=== PATIENT | female | born 1950 | race African-American/Black ===

== ENCOUNTER 2016-12-28 10:39 | Emergency (ER) | payer OTHER ==
[~2016-12-28] VITALS: Ht 162.6 cm; Wt 65.0 kg
[~2016-12-28 10:39] MED LIST: HYDR-3580 PO; LISI10TA PO; PROT40TA PO
[2016-12-28 10:41] VITALS: BP 177/76; PULSE 60; RESP 14; TEMP 98.2; O2SAT 98
[2016-12-28 10:55] VITALS: BP 182/75; PULSE 55; RESP 20; O2SAT 98
[2016-12-28] MEDS ORDERED: LISI10TA PO (11:00)
--- NOTE | 2016-12-28 11:00 | PD ---
HPI Chief Complaint: Abdominal Pain Time Seen by Provider: 11:00 Travel History International Travel<30 days: No Contact w/Intl Traveler<30days: No Traveled to known affect area: No History of Present Illness HPI 66-year-old Afro-[place] female presents the emergency department several day history of worsening epigastric tenderness radiating through to her back. Patient states it's worse every time she eats. She has been unable to eat the past 24 hours. Patient denies fever, chills, shortness of breath, or wheezing. Patient denies nausea, vomiting, or diarrhea. She denies urinary symptoms. She denies changes in her stool. She has a history of gastritis and pancreatitis in the past. 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 Patient states the pain is a 9 out of 10. Describes it as a sharp achy pain. She has no known drug allergies. PFSH Past Medical History Arthritis: Yes Asthma: No Autoimmune Disease: No Blood Disorders: No Anxiety: Yes Depression: Yes Heart Rhythm Problems: No Cancer: No Cardiac Catheterization: Yes Cardiovascular Problems: Yes High Cholesterol: Yes Chemotherapy: No Chest Pain: No Congestive Heart Failure: No COPD: No Coronary Artery Disease: Yes Diabetes: No Diminished Hearing: No Endocrine: No Gastrointestinal Disorders: Yes (PANCREATITIS, GASTRITIS) GERD: No Glaucoma: No Genitourinary: No Hepatitis: No Hiatal Hernia: No Hypertension: Yes Immune Disorder: No Musculoskeletal: Yes Neurologic: No Psychiatric: Yes Reproductive: Yes (partial hysterectomy) Respiratory: Yes Myocardial Infarction: Yes Pancreatitis: Yes (per hx ) Radiation Therapy: No Sleep Apnea: No Thyroid Disease: No Ulcer: No ?: Not Menopausal: Yes : 10 Para: 10 Tubal Ligation: Yes Past Surgical History Abdominal Surgery: No AICD: No Cardiac Surgery: No Section: Yes Coronary Stent: Yes Ear Surgery: No Endocrine Surgery: No Genitourinary Surgery: No Gynecologic Surgery: Yes Hysterectomy: Yes Oral Surgery: No Pacemaker: No Thoracic Surgery: No Other Surgery: No Social History Alcohol Use: No Tobacco Use: Yes Substance Use: No Allergies-Medications (Allergen,Severity, Reaction): Coded Allergies: No Known Allergies (Verified , NKA, 07/30/14) Reported Meds & Prescriptions Reported Meds & Active Scripts Active Omeprazole 40 Mg Cap 40 Mg PO DAILY Lortab (Hydrocodone-Acetaminophen) 5-325 Mg Tab 1-2 Tab PO Q6H PRN Reported Lisinopril-Hctz 10-12.5 Mg Tab 1 Tab PO DAILY Review of Systems Except as stated in HPI: all other systems reviewed are Neg General / Constitutional: No: Fever, Chills Eyes: No: Visual changes HENT: No: Headaches Cardiovascular: No: Chest Pain or Discomfort Respiratory: No: Shortness of Breath Gastrointestinal: Positive: Abdominal Pain, Dysphagia, Loss of Appetite, No: Nausea, Vomiting, Diarrhea, Hematemesis, Hematochezia, Constipation Genitourinary: No: Urgency, Frequency, Dysuria Musculoskeletal: No: Pain Skin: No Rash Neurologic: No: Weakness Psychiatric: No: Depression Endocrine: No: Polydipsia Hematologic/Lymphatic: No: Easy Bruising Physical Exam Narrative GENERAL: Patient appears to be uncomfortable but in no obvious severe distress. SKIN: Warm and dry. Normal color. Normal turgor. HEAD: Atraumatic. Normocephalic. EYES: Pupils equal and round. No scleral icterus. No injection or drainage. ENT: No nasal bleeding or discharge. Mucous membranes pink and moist. Pharynx is clear. Airway is patent. NECK: Trachea midline. Supple and nontender. CARDIOVASCULAR: Regular rate and rhythm. RESPIRATORY: No accessory muscle use. Clear to auscultation. Breath sounds equal bilaterally. GASTROINTESTINAL: Abdomen soft, moderate to severe epigastric tenderness, nondistended. No guarding. Bowel sounds are somewhat quiet throughout all quadrants. Hepatic and splenic margins not palpable. Mild bilateral CVA tenderness with percussion. MUSCULOSKELETAL: Extremities without clubbing, cyanosis, or edema. No obvious deformities. NEUROLOGICAL: Awake and alert. No obvious cranial nerve deficits. Motor grossly within normal limits. Five out of 5 muscle strength in the arms and legs. Normal speech. PSYCHIATRIC: Appropriate mood and affect; insight and judgment normal. Data Data Last Documented VS Vital Signs Date Time Temp Pulse Resp B/P Pulse Ox O2 Delivery O2 Flow Rate FiO2 12/28/16 10:55 55 20 182/75 98 Room Air 12/28/16 10:41 98.2 Orders Complete Blood Count With Diff (12/28/16 11:05) Comprehensive Metabolic Panel (12/28/16 11:05) Lipase (12/28/16 11:05) Lactic Acid (12/28/16 11:05) Prothrombin Time / Inr (Pt) (12/28/16 11:05) Act Partial Throm Time (Ptt) (12/28/16 11:05) Urinalysis - C+S If Indicated (12/28/16 11:05) Ct Abd/Pel W Iv Contrast(Rout) (12/28/16 11:05) Iv Access Insert/Monitor (12/28/16 11:05) Ecg Monitoring (12/28/16 11:05) Oximetry (12/28/16 11:05) NPO (12/28/16 11:05) Morphine Inj (Morphine Inj) (12/28/16 11:15) Ondansetron Inj (Zofran Inj) (12/28/16 11:15) Pantoprazole Inj (Protonix Inj) (12/28/16 11:15) Sodium Chlor 0.9% 1000 Ml Inj (Ns 1000 M (12/28/16 11:05) Sodium Chloride 0.9% Flush (Ns Flush) (12/28/16 11:15) Electrocardiogram (12/28/16 11:05) Al-Mag Hy-Si 40-40-4 Mg/Ml Liq (Mag-Al P (12/28/16 11:15) Lidocaine 2% Viscous (Xylocaine 2% Visco (12/28/16 11:15) Oral Contrast - Adult (12/28/16 11:11) Diatrizoate Liq ( Gastroview Liq) (12/28/16 11:36) Iohexol 350 Inj (Omnipaque 350 Inj) (12/28/16 13:42) Labs Laboratory Tests Test 12/28/16 11:48 White Blood Count 8.1 TH/MM3 Red Blood Count 4.64 MIL/MM3 Hemoglobin 13.5 GM/DL Hematocrit 40.6 % Mean Corpuscular Volume 87.3 FL Mean Corpuscular Hemoglobin 29.2 PG Mean Corpuscular Hemoglobin 33.4 % Concent Red Cell Distribution Width 14.4 % Platelet Count 224 TH/MM3 Mean Platelet Volume 8.3 FL Neutrophils (%) (Auto) 49.9 % Lymphocytes (%) (Auto) 37.7 % Monocytes (%) (Auto) 8.4 % Eosinophils (%) (Auto) 3.4 % Basophils (%) (Auto) 0.6 % Neutrophils # (Auto) 4.1 TH/MM3 Lymphocytes # (Auto) 3.1 TH/MM3 Monocytes # (Auto) 0.7 TH/MM3 Eosinophils # (Auto) 0.3 TH/MM3 Basophils # (Auto) 0.0 TH/MM3 CBC Comment DIFF FINAL Differential Comment Prothrombin Time 10.6 SEC Prothromb Time International 1.0 RATIO Ratio Activated Partial 29.9 SEC Thromboplast Time Urine Color YELLOW Urine Turbidity CLEAR Urine pH 6.5 Urine Specific [place] 1.014 Urine Protein TRACE mg/dL Urine Glucose (UA) NEG mg/dL Urine Ketones NEG mg/dL Urine Occult Blood NEG Urine Nitrite NEG Urine Bilirubin NEG Urine Urobilinogen LESS THAN 2.0 MG/DL Urine Leukocyte Esterase NEG Urine RBC LESS THAN 1 /hpf Urine WBC LESS THAN 1 /hpf Urine Squamous Epithelial 2 /hpf Cells Urine Bacteria RARE /hpf Microscopic Urinalysis Comment CULT NOT INDICATED Sodium Level 138 MEQ/L Potassium Level 4.1 MEQ/L Chloride Level 106 MEQ/L Carbon Dioxide Level 23.6 MEQ/L Anion Gap 8 MEQ/L Blood Urea Nitrogen 10 MG/DL Creatinine 0.68 MG/DL Estimat Glomerular Filtration 105 ML/MIN Rate Random Glucose 82 MG/DL Lactic Acid Level 0.8 mmol/L Calcium Level 8.7 MG/DL Total Bilirubin 0.6 MG/DL Aspartate Amino Transf 17 U/L (AST/SGOT) Alanine Aminotransferase 16 U/L (ALT/SGPT) Alkaline Phosphatase 66 U/L Total Protein 7.8 GM/DL Albumin 3.3 GM/DL Lipase 208 U/L [facility] Medical Decision Making Medical Screen Exam Complete: Yes Emergency Medical Condition: Yes Medical Record Reviewed: Yes Differential Diagnosis Epigastric pain. Gastritis. Pancreatitis. Diverticulitis. Gallbladder disease. Biliary colic. Narrative Course Patient is medically stable at time of exam. Patient is reviewed and examined with Dr. sampson. Labs ordered including CBC, CMP, lactic acid, lipase, urinalysis, coagulation studies. IV access is obtained patient is given 4 mg Zofran IV as well as 4 mg morphine IV. Patient is given [address] of the abdomen with IV and oral contrast is ordered. Labs are essentially all within normal limits. Patient symptomatically improved. CT shows suspected mild had pancreatitis in the proper clinical setting. #2 trace free fluid. Nothing large, organized drainable, #3 fatty liver again noted. 4 heterogeneous pelvic mass measuring 8.6 x 12.1 x 9.7 cm fairly similar to previous CT scan. This is suggestive of fibroid per radiologist. Patient discussed with Dr. sampson feels the patient is stable for discharge. Patient is discharged home with omeprazole 40 mg daily for the next month. Patient is given a prescription for Lortab 325 to be taken as needed for pain # 12. Patient is referred to her primary care physician and/or [place] [facility] for further treatment. Patient can always return to emergency Department with worsening symptoms as needed. Diagnosis Primary Impression: Gastritis Qualified Code: K29.00 - Acute gastritis without hemorrhage, unspecified gastritis type Additional Impression: Abdominal pain Qualified Code: R10.13 - Epigastric pain Referrals: [facility] Primary Care Physician Patient Instructions: General Instructions Additional Instructions: Labs are essentially all within normal limits. Patient symptomatically improved. CT shows suspected mild had pancreatitis in the proper clinical setting. #2 trace free fluid. Nothing large, organized drainable, #3 fatty liver again noted. 4 heterogeneous pelvic mass measuring 8.6 x 12.1 x 9.7 cm fairly similar to previous CT scan. This is suggestive of fibroid per radiologist. Patient discussed with Dr. sampson feels the patient is stable for discharge. Patient is discharged home with omeprazole 40 mg daily for the next month. Patient is given a prescription for Lortab 325 to be taken as needed for pain # 12. Patient is referred to her primary care physician and/or [place] clinic for further treatment. Patient can always return to emergency Department with worsening symptoms as needed. Med/Other Pt SpecificInfo: Prescription(s) given Scripts Omeprazole 40 Mg Cap40 Mg PO DAILY #30 CAP Prov:Remy Soriano MD 12/28/16 Hydrocodone-Acetaminophen (Lortab)5-325 Mg Tab1-2 Tab PO Q6H PRN (PAIN) #12 TAB Prov:Remy Soriano MD 12/28/16 Disposition: 01 DISCHARGE HOME Condition: Stable [address] Dec 28, 2016 11:00
[2016-12-28] MEDS ORDERED: SODIUM CHLOR 0.9% 1000 ML INJ 1,000 ML IV SCH (11:05)
[2016-12-28] MEDS ORDERED: ALUMINUM/MAGNESIUM/SIMETH 30 ML CUP PO ONE (11:15)
[2016-12-28] MEDS ORDERED: MORPHINE SULFATE 4 MG/ML INJ IV PUSH ONE (11:15)
[2016-12-28] MEDS ORDERED: LIDOCAINE VISCOUS 2% SOLN 15 ML UDC PO ONE (11:15)
[2016-12-28] MEDS ORDERED: PANTOPRAZOLE SODIUM 40 MG VIAL IVP ONE (11:15)
[2016-12-28] MEDS ORDERED: ONDANSETRON HCL 4 MG/2 ML VIAL IVP ONE (11:15)
[2016-12-28] MEDS ORDERED: SODIUM CHLORIDE 0.9% FLUSH 10 ML FLUSH IV FLUSH PRN (11:15)
[2016-12-28] MEDS ORDERED: DIATRIZOATE MEGLUM/DIATRIZOATE SOD 9 ML CUP ONE (11:36)
[2016-12-28 12:10] LABS: AUTOMATED NEUTROPHIL # 4.1 TH/MM3 (1.8-7.7); BASOPHIL % 0.6 % (0.0-2.0); EOSINOPHIL # 0.3 TH/MM3 (0-0.4); EOSINOPHIL % 3.4 % (0.0-4.0); HEMATOCRIT 40.6 % (35.0-46.0); HEMO FLAGS DIFF FINAL; LYMPH % 37.7 % (9.0-44.0); LYMPHOCYTE # 3.1 TH/MM3 (1.0-4.8); MEAN CELL VOLUME 87.3 FL (80.0-100.0); MEAN CORPUSCULAR HEMOGLOBIN 29.2 PG (27.0-34.0); MEAN CORPUSCULAR HGB CONC 33.4 % (32.0-36.0); MONO % 8.4 % (0.0-8.0); NEUT % 49.9 % (16.0-70.0); PLATELET COUNT 224 TH/MM3 (150-450); RED BLOOD COUNT 4.64 MIL/MM3 (4.00-5.30); RED CELL DISTRIBUTION WIDTH 14.4 % (11.6-17.2); WHITE BLOOD COUNT 8.1 TH/MM3 (4.0-11.0)
[2016-12-28 12:21] LABS: APTT (PATIENT) 29.9 SEC (24.3-30.1); PROTHROMBIN TIME - PATIENT 10.6 SEC (9.8-11.6)
[2016-12-28 12:31] LABS: ALKALINE PHOSPHATASE 66 U/L (45-117); TOTAL BILIRUBIN ADULT 0.6 MG/DL (0.2-1.0)
[2016-12-28 12:41] LABS: BACTERIA, URINE RARE /hpf; BLOOD, URINE NEG (NEG); COMMENT (UR) CULT NOT INDICATED; CULTURE IF INDICATED CULT NOT INDICATED; GLUCOSE,URINE NEG (NEG); KETONE, URINE NEG (NEG); NITRITE,URINE NEG (NEG); PH, URINE 6.5 (5.0-8.5); SQUAMOUS EPITHELIAL CELL URINE 2 /hpf (0-5); URINE COLOR YELLOW (YELLW/STRAW)
[2016-12-28 12:42] LABS: ALT (GPT) 16 U/L (10-53); ANION GAP 8 MEQ/L (5-15); AST (GOT) 17 U/L (15-37); BICARBONATE 23.6 MEQ/L (21.0-32.0); BLOOD UREA NITROGEN 10 MG/DL (7-18); CHLORIDE 106 MEQ/L (98-107); GLOMERULAR FILTRATION RATE 105 ML/MIN (>89); POTASSIUM 4.1 MEQ/L (3.5-5.1); SODIUM (NA) 138 MEQ/L (136-145)
[2016-12-28] MEDS ORDERED: IOHEXOL 350 MG/ML 10 ML VIAL (for RAD DIAG) IV ONE (13:42)
--- NOTE | 2016-12-28 14:31 | RADRPT ---
EXAM DATE/TIME: 12/28/2016 13:29 [place] COMPARISON: CT ABDOMEN & PELVIS W CONTRAST, March 12, 2016, 9:30. INDICATIONS : Abdominal pain mid upper abdomen. IV CONTRAST: 95 cc Omnipaque 350 (iohexol) IV ORAL CONTRAST: Prescribed oral contrast ingested. RADIATION DOSE: 8.88 CTDIvol (mGy) MEDICAL HISTORY : Cardiovascular disease. Hypertension. Pancreatitis.Gastrititis SURGICAL HISTORY : Cardiac ENCOUNTER: Initial ACUITY: 2 days PAIN SCALE: 7/10 LOCATION: middle abdomen TECHNIQUE: Volumetric scanning of the abdomen and pelvis was performed. Using automated exposure control and ad justment of the mA and/or kV according to patient size, radiation dose was kept as low as reasonably achievable to obtain optimal diagnostic quality images. DICOM format image data is available electro nically for review and comparison. FINDINGS: LOWER LUNGS: The visualized lower lungs are clear. LIVER: Liver is fatty infiltrated. No focal hepatic lesion. CT appearance of the gallbladder within normal l imits. SPLEEN: Normal size without lesion. PANCREAS: Mild indistinctness seen in the pancreatic head and adjacent fat and mild pancreatitis would be in th e differential. No well-defined or measurable mass seen. KIDNEYS: Normal in size and shape. There is no mass, stone or hydronephrosis. ADRENAL GLANDS: Within normal limits. VASCULAR: Abdominal aorta and iliac arteries are atherosclerotic. No aneurysm. BOWEL/MESENTERY: The stomach, small bowel, and colon demonstrate no acute abnormality. There is no free intraperitone al air or fluid. Normal appendix. ABDOMINAL WALL: Within normal limits. RETROPERITONEUM: There is no lymphadenopathy. BLADDER: No wall thickening or mass. REPRODUCTIVE: Heterogeneous pelvic mass again noted, potentially fibroid uterus. There is trace low attenuation jeremie e fluid in the pelvic cul-de-sac. I don't clearly see either ovary. INGUINAL: There is no lymphadenopathy or hernia. MUSCULOSKELETAL: No acute bony abnormality demonstrated. CONCLUSION: 1. Suspected mild head pancreatitis in the proper clinical setting. 2. Trace free fluid. Nothing large, organized or drainable. 3. Fatty liver again noted. 4. Heterogeneous pelvic mass measuring 8.6 x 12.1 x 9.7 cm in size appears fairly similar to before a nd is mostly likely on the basis of a fibroid uterus. Mc Barton MD on December 28, 2016 at 14:21 Board Certified Radiologist. This report was verified electronically.
[2016-12-28] MEDS ORDERED: HYDR-3533 PO (14:37)
[2016-12-28] MEDS ORDERED: OMEP40CA2 PO (14:37)
--- NOTE | 2016-12-28 14:48 | PD ---
Data Data Last Documented VS Vital Signs Date Time Temp Pulse Resp B/P Pulse Ox O2 Delivery O2 Flow Rate FiO2 12/28/16 10:55 55 20 182/75 98 Room Air 12/28/16 10:41 98.2 Orders Complete Blood Count With Diff (12/28/16 11:05) Comprehensive Metabolic Panel (12/28/16 11:05) Lipase (12/28/16 11:05) Lactic Acid (12/28/16 11:05) Prothrombin Time / Inr (Pt) (12/28/16 11:05) Act Partial Throm Time (Ptt) (12/28/16 11:05) Urinalysis - C+S If Indicated (12/28/16 11:05) Ct Abd/Pel W Iv Contrast(Rout) (12/28/16 11:05) Iv Access Insert/Monitor (12/28/16 11:05) Ecg Monitoring (12/28/16 11:05) Oximetry (12/28/16 11:05) NPO (12/28/16 11:05) Morphine Inj (Morphine Inj) (12/28/16 11:15) Ondansetron Inj (Zofran Inj) (12/28/16 11:15) Pantoprazole Inj (Protonix Inj) (12/28/16 11:15) Sodium Chlor 0.9% 1000 Ml Inj (Ns 1000 M (12/28/16 11:05) Sodium Chloride 0.9% Flush (Ns Flush) (12/28/16 11:15) Electrocardiogram (12/28/16 11:05) Al-Mag Hy-Si 40-40-4 Mg/Ml Liq (Mag-Al P (12/28/16 11:15) Lidocaine 2% Viscous (Xylocaine 2% Visco (12/28/16 11:15) Oral Contrast - Adult (12/28/16 11:11) Diatrizoate Liq ( Gastroview Liq) (12/28/16 11:36) Iohexol 350 Inj (Omnipaque 350 Inj) (12/28/16 13:42) Labs Laboratory Tests Test 12/28/16 11:48 White Blood Count 8.1 TH/MM3 Red Blood Count 4.64 MIL/MM3 Hemoglobin 13.5 GM/DL Hematocrit 40.6 % Mean Corpuscular Volume 87.3 FL Mean Corpuscular Hemoglobin 29.2 PG Mean Corpuscular Hemoglobin 33.4 % Concent Red Cell Distribution Width 14.4 % Platelet Count 224 TH/MM3 Mean Platelet Volume 8.3 FL Neutrophils (%) (Auto) 49.9 % Lymphocytes (%) (Auto) 37.7 % Monocytes (%) (Auto) 8.4 % Eosinophils (%) (Auto) 3.4 % Basophils (%) (Auto) 0.6 % Neutrophils # (Auto) 4.1 TH/MM3 Lymphocytes # (Auto) 3.1 TH/MM3 Monocytes # (Auto) 0.7 TH/MM3 Eosinophils # (Auto) 0.3 TH/MM3 Basophils # (Auto) 0.0 TH/MM3 CBC Comment DIFF FINAL Differential Comment Prothrombin Time 10.6 SEC Prothromb Time International 1.0 RATIO Ratio Activated Partial 29.9 SEC Thromboplast Time Urine Color YELLOW Urine Turbidity CLEAR Urine pH 6.5 Urine Specific [place] 1.014 Urine Protein TRACE mg/dL Urine Glucose (UA) NEG mg/dL Urine Ketones NEG mg/dL Urine Occult Blood NEG Urine Nitrite NEG Urine Bilirubin NEG Urine Urobilinogen LESS THAN 2.0 MG/DL Urine Leukocyte Esterase NEG Urine RBC LESS THAN 1 /hpf Urine WBC LESS THAN 1 /hpf Urine Squamous Epithelial 2 /hpf Cells Urine Bacteria RARE /hpf Microscopic Urinalysis Comment CULT NOT INDICATED Sodium Level 138 MEQ/L Potassium Level 4.1 MEQ/L Chloride Level 106 MEQ/L Carbon Dioxide Level 23.6 MEQ/L Anion Gap 8 MEQ/L Blood Urea Nitrogen 10 MG/DL Creatinine 0.68 MG/DL Estimat Glomerular Filtration 105 ML/MIN Rate Random Glucose 82 MG/DL Lactic Acid Level 0.8 mmol/L Calcium Level 8.7 MG/DL Total Bilirubin 0.6 MG/DL Aspartate Amino Transf 17 U/L (AST/SGOT) Alanine Aminotransferase 16 U/L (ALT/SGPT) Alkaline Phosphatase 66 U/L Total Protein 7.8 GM/DL Albumin 3.3 GM/DL Lipase 208 U/L MDM Supervised Visit with KRYSTIAN: Yes Narrative Course The history, exam, and medical decision-making in the associated mid-level provider note were completed with my assistance. I reviewed and agree with the findings presented. I attest that I had a [id number] encounter with the patient on the same day, and personally performed and documented my assessment and findings in the medical record. *My assessment and Findings: 66 year-old woman with a history of gastritis and pancreatitis presents emergent department with ongoing abdominal pain in the epigastrium. She had a set gastritis. CT scan shows a little bit of focal admission the pancreas. Lipase is normal. We'll recommend supportive treatment with antacids, some pain medication, liquid diet until symptoms resolve. Recommend outpatient follow-up. Diagnosis Primary Impression: Gastritis Qualified Code: K29.00 - Acute gastritis without hemorrhage, unspecified gastritis type Additional Impression: Abdominal pain Qualified Code: R10.13 - Epigastric pain Referrals: [facility] Primary Care Physician Patient Instructions: General Instructions Additional Instruction: Labs are essentially all within normal limits. Patient symptomatically improved. CT shows suspected mild had pancreatitis in the proper clinical setting. #2 trace free fluid. Nothing large, organized drainable, #3 fatty liver again noted. 4 heterogeneous pelvic mass measuring 8.6 x 12.1 x 9.7 cm fairly similar to previous CT scan. This is suggestive of fibroid per radiologist. Patient discussed with Dr. sampson feels the patient is stable for discharge. Patient is discharged home with omeprazole 40 mg daily for the next month. Patient is given a prescription for Lortab 325 to be taken as needed for pain # 12. Patient is referred to her primary care physician and/or [place] clinic for further treatment. Patient can always return to emergency Department with worsening symptoms as needed. Scripts Omeprazole 40 Mg Cap40 Mg PO DAILY #30 CAP Prov:Remy Soriano MD 12/28/16 Hydrocodone-Acetaminophen (Lortab)5-325 Mg Tab1-2 Tab PO Q6H PRN (PAIN) #12 TAB Prov:Remy Soriano MD 12/28/16 Disposition: 01 DISCHARGE HOME Condition: Stable Remy Soriano MD Dec 28, 2016 14:48
--- NOTE | 2016-12-29 15:06 | EKG ---
Date Performed: 12/28/2016 Time Performed: 12:10:21 PTAGE: 66 years EKG: SINUS BRADYCARDIA LEFT ATRIAL ENLARGEMENT LEFT VENTRICULAR HYPERTROPHY AND ST-T CHANGE ABNO RMAL ECG Consider anterolateral ischemia. PREVIOUS TRACING 03/12/2016 10.13.30 DOCTOR: Renard Barros Interpretating Date/Time 12/29/2016 15:04:42
== END 2016-12-28 15:26 | disposition home or self-care (01) ==
LOC: NEPD 10:39
DX: K29.00 Acute gastritis without bleeding (principal); K76.0 Fatty (change of) liver, not elsewhere classified; Z72.0 Tobacco use; Z95.5 Presence of coronary angioplasty implant and graft; E78.00 Pure hypercholesterolemia, unspecified; I10 Essential (primary) hypertension; I25.10 Atherosclerotic heart disease of native coronary artery without angina pectoris; I25.2 Old myocardial infarction
CPT/HCPCS: 74177; 80053; 81001; 83605; 83690; 85025; 85610; 85730; 93005; 96361; 96374; 96375; 99285; C9113; J2270; J2405; J7030; Q9963; Q9967

== ENCOUNTER 2017-11-14 19:37 | Emergency (ER) | payer OTHER ==
[~2017-11-14] VITALS: Ht 162.6 cm; Wt 65.0 kg
[~2017-11-14 19:37] MED LIST changes: +HYDR-3533 PO; -HYDR-3580 PO; +OMEP40CA2 PO; -PROT40TA PO
[2017-11-14 19:42] VITALS: BP 183/97; PULSE 82; RESP 16; TEMP 98.3; O2SAT 97
--- NOTE | 2017-11-14 20:34 | RADRPT ---
EXAM DATE: 11/14/2017 8:15 PM EDT AGE/SEX: 67 years / Female INDICATIONS: Left foot pain due to fall. CLINICAL DATA: This is the patient's initial encounter. Patient reports that signs and symptoms have been present for 2 days and indicates a pain score of 10/10. MEDICAL/SURGICAL HISTORY: None. None. COMPARISON: No prior exams available for comparison. FINDINGS: Bony structures are intact and in normal alignment. Osseous density is normal. Soft tissues are unre markable. No radiopaque foreign bodies seen. CONCLUSION: No acute bony abnormality. Electronically signed by: Willie Holcomb MD 11/14/2017 8:33 PM EDT
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
[2017-11-14] MEDS ORDERED: TRAM50TA PO (22:25)
[2017-11-14] MEDS ORDERED: CEPH-460 PO (22:25)
== END 2017-11-14 22:35 | disposition home or self-care (01) ==
LOC: NEPE 19:37
DX: L08.9 Local infection of the skin and subcutaneous tissue, unspecified (principal); M79.672 Pain in left foot; I10 Essential (primary) hypertension; Z72.0 Tobacco use
CPT/HCPCS: 73630; 99283

== ENCOUNTER 2017-11-28 12:52 | Observation (INO) ==
[2017-11-28] MEDS ORDERED: Sod Chloride 0.9% Inj 1,000 ML IV.SIG ONE (14:09)
--- NOTE | 2017-11-28 14:11 | ED ---
HPI General Chief Complaint: Abdominal Pain Stated Complaint: Stomach Pain Time Seen by Provider: 11/28/17 14:07 Source: patient Mode of arrival: ambulatory Limitations: no limitations History of Present Illness HPI narrative: Patient has been having some diffuse abdominal pain along with nausea and vomiting for the past 4 days. She has tried to hold off but continues to experience it. Patient denies any other sick contacts. Patient denies anyone else sick from any type of foodborne illness as far as she knows. Patient denies any fever MD complaint: abdominal pain Onset (ago): day(s) (3) Pain Consistency: constant Location: diffuse Severity: moderate Severity scale (1-10): 5 Quality: cramping Radiation: none Migration to: no migration Relieving factors: nothing Exacerbating factors: nothing Associated symptoms: nausea and vomiting Related Data Home Medications Medication Instructions Recorded Confirmed lisinopril-hydrochlorothiazide 1 tab PO DAILY 11/28/17 11/28/17 Allergies Allergy/AdvReac Type Severity Reaction Status Date / Time No Known Allergies Allergy Unverified 11/28/17 12:58 Review of Systems Except as stated in HPI: all other systems reviewed are negative PMFSH History History Provided By: Patient Medical History Medical History H/O: hysterectomy (Acute) Alcoholic pancreatitis (Acute) COPD (chronic obstructive pulmonary disease) (Acute) Chronic back pain (Acute) Coronary artery disease (Acute) Gastritis (Acute) HTN (hypertension) (Acute) Osteoarthritis (Acute) Family History Family History Mother CVA (cerebral vascular accident) Social History Social History Substance History: No History of Abuse Second Hand Smoke Exposure: Yes Smoking Status: Current every day smoker Tobacco Type: Cigarettes How Often Do You Have a Drink Containing Alcohol: Never Recent Travel in [place] within the Last 8 Weeks: No Recent Out of Country Travel within the Last 8 Weeks: No Immunization History Tetanus Immunization: Unsure Hx Influenza Vaccine This Season: Yes Exam Narrative Exam Narrative: GENERAL: -Israeli female in some mild discomfort secondary to abdominal pain and nausea SKIN: Warm and dry. HEAD: Atraumatic. Normocephalic. EYES: Pupils equal and round. No scleral icterus. No injection or drainage. ENT: No nasal bleeding or discharge. Dry oral mucosa NECK: Trachea midline. No JVD. CARDIOVASCULAR: Regular rate and rhythm. no rubs or gallops RESPIRATORY: No accessory muscle use. Clear to auscultation. Breath sounds equal bilaterally. GASTROINTESTINAL: Abdomen soft, but diffusely tender to percussion , nondistended. No rebound or guarding MUSCULOSKELETAL: Extremities without clubbing, cyanosis, or edema. No obvious deformities. NEUROLOGICAL: Awake and alert. No obvious cranial nerve deficits. Motor grossly within normal limits. Five out of 5 muscle strength in the arms and legs. Normal speech. PSYCHIATRIC: Appropriate mood and affect; insight and judgment normal. Course Initial Documented Vital Signs Temperature 97.8 F 11/28/17 12:58 Pulse Rate 87 11/28/17 12:58 Respiratory Rate 20 11/28/17 12:58 Blood Pressure 173/80 H 11/28/17 12:58 Pulse Oximetry 98 11/28/17 12:58 Last Documented Vital Signs Temperature 97.8 F 11/28/17 12:58 Pulse Rate 56 L 11/28/17 18:00 Respiratory Rate 16 11/28/17 18:00 Blood Pressure 203/84 H 11/28/17 18:00 Pulse Oximetry 100 11/28/17 18:32 Medical Decision Making Differential Diagnosis Differential Diagnosis: Pancreatitis versus gastroenteritis versus hepatitis versus electrolyte imbalance versus food poisoning versus STEMI Lab Data Lab results reviewed: Yes I reviewed the patient's lab results. Result diagrams: 11/28/17 14:21 11/28/17 15:06 Lab Results 11/28/17 11/28/17 11/28/17 Range/Units 14:21 15:06 15:06 WBC 7.8 (4.0-11.0) th/mm3 RBC 5.09 (4.00-5.30) mil/mm3 Hgb 14.5 (11.6-15.3) gm/dL Hct 42.9 (35.0-46.0) % MCV 84.3 (80.0-100.0) fL MCH 28.5 (27.0-34.0) pg MCHC 33.8 (32.0-36.0) % RDW 15.4 (11.6-17.2) % Plt Count 368 (150-450) th/mm3 MPV 8.1 (7.0-11.0) fL Neut % (Auto) 48.2 (16.0-70.0) % Lymph % (Auto) 39.0 (9.0-44.0) % [place] % (Auto) 10.5 H (0.0-8.0) % Eos % (Auto) 1.9 (0.0-4.0) % Baso % (Auto) 0.4 (0.0-2.0) % Neut # (Auto) 3.8 (1.8-7.7) th/mm3 Lymph # (Auto) 3.0 (1.0-4.8) th/mm3 [place] # (Auto) 0.8 (0.0-0.9) th/mm3 Eos # (Auto) 0.1 (0.0-0.4) th/mm3 Baso # (Auto) 0.0 (0.0-0.2) th/mm3 WBC Differential . Differential Comment Auto diff final Sodium 137 (136-145) meq/L Potassium 4.2 (3.5-5.1) meq/L Chloride 102 (98-107) meq/L Carbon Dioxide 26.4 (21.0-32.0) meq/L Anion Gap 9 (5-15) meq/L BUN 8 (7-18) mg/dL Creatinine 0.76 (0.50-1.00) mg/dL Estimated GFR Greater than 89 (>89) mL/min Random Glucose 85 (74-106) mg/dL Calcium 9.3 (8.5-10.1) mg/dL Total Bilirubin 1.2 H (0.2-1.0) mg/dL AST 10 L (15-37) U/L ALT 12 (10-53) U/L Alkaline Phosphatase 60 (45-117) U/L Total Creatine Kinase 42 (26-192) U/L Troponin I Less than 0.02 L (0.02-0.05) ng/mL Total Protein 8.8 H (6.4-8.2) g/dL Albumin 3.4 (3.4-5.0) g/dL Lipase 205 (73-393) U/L Urine Color (Yellw/Straw) Urine Clarity (Clear) Urine pH (5.0-8.5) Ur Specific [place] (1.002-1.035) Urine Protein (Neg-Trace) mg/dL Urine Glucose (UA) (Negative) mg/dL Urine Ketones (Negative) mg/dL Urine Occult Blood (Negative) Urine Nitrate (Negative) Urine Bilirubin (Negative) Urine Urobilinogen (Less than 2) mg/dL Ur Leukocyte Esterase (Negative) Urine WBC (0-5) /hpf Ur Squamous Epith Cells (0-5) /hpf Urine Bacteria (None) /hpf Hyaline Casts (0-3) /lpf Urine Mucus (Occasional) /lpf Micro UA Comment Urine Culture Comments 11/28/17 Range/Units 16:20 WBC (4.0-11.0) th/mm3 RBC (4.00-5.30) mil/mm3 Hgb (11.6-15.3) gm/dL Hct (35.0-46.0) % MCV (80.0-100.0) fL MCH (27.0-34.0) pg MCHC (32.0-36.0) % RDW (11.6-17.2) % Plt Count (150-450) th/mm3 MPV (7.0-11.0) fL Neut % (Auto) (16.0-70.0) % Lymph % (Auto) (9.0-44.0) % [place] % (Auto) (0.0-8.0) % Eos % (Auto) (0.0-4.0) % Baso % (Auto) (0.0-2.0) % Neut # (Auto) (1.8-7.7) th/mm3 Lymph # (Auto) (1.0-4.8) th/mm3 [place] # (Auto) (0.0-0.9) th/mm3 Eos # (Auto) (0.0-0.4) th/mm3 Baso # (Auto) (0.0-0.2) th/mm3 WBC Differential Differential Comment Sodium (136-145) meq/L Potassium (3.5-5.1) meq/L Chloride (98-107) meq/L Carbon Dioxide (21.0-32.0) meq/L Anion Gap (5-15) meq/L BUN (7-18) mg/dL Creatinine (0.50-1.00) mg/dL Estimated GFR (>89) mL/min Random Glucose (74-106) mg/dL Calcium (8.5-10.1) mg/dL Total Bilirubin (0.2-1.0) mg/dL AST (15-37) U/L ALT (10-53) U/L Alkaline Phosphatase (45-117) U/L Total Creatine Kinase (26-192) U/L Troponin I (0.02-0.05) ng/mL Total Protein (6.4-8.2) g/dL Albumin (3.4-5.0) g/dL Lipase (73-393) U/L Urine Color Yellow (Yellw/Straw) Urine Clarity Hazy H (Clear) Urine pH 5.0 (5.0-8.5) Ur Specific [place] 1.012 (1.002-1.035) Urine Protein 100 H (Neg-Trace) mg/dL Urine Glucose (UA) Negative (Negative) mg/dL Urine Ketones 20 (Negative) mg/dL Urine Occult Blood Small H (Negative) Urine Nitrate Negative (Negative) Urine Bilirubin Negative (Negative) Urine Urobilinogen Less than 2 (Less than 2) mg/dL Ur Leukocyte Esterase Negative (Negative) Urine WBC 2 (0-5) /hpf Ur Squamous Epith Cells 5 (0-5) /hpf Urine Bacteria Occasional H (None) /hpf Hyaline Casts 1 (0-3) /lpf Urine Mucus Few H (Occasional) /lpf Micro UA Comment Culture not ind Urine Culture Comments Culture not ind ECG Data EKG Prior to Arrival: No Attestation: I personally reviewed and interpreted this ECG as follows: Prior ECG tracings: not available for review Interpretation: Sinus bradycardia at 57 bpm, LVH pattern noted, left atrial enlargement pattern noted, inverted T waves on the inferior lateral leads of 1 aVL V4 through V6 Discharge Plan Discharge Disposition Patient Disposition: 01 Discharge Home Physicians Team ED Provider: Tre Robledo Primary Care Provider: UNKNOWN, Attending Provider: Lester Bill Status ED Status: Admitted Observation Patient
[2017-11-28 14:34] LABS: Baso % (Auto) 0.4 % (0.0-2.0); Eos # (Auto) 0.1 th/mm3 (0.0-0.4); Eos % (Auto) 1.9 % (0.0-4.0); Hematocrit 42.9 % (35.0-46.0); Hemoglobin 14.5 gm/dL (11.6-15.3); Mean Corpuscular HGB Conc 33.8 % (32.0-36.0); Mean Corpuscular Hemoglobin 28.5 pg (27.0-34.0); Mean Corpuscular Volume 84.3 fL (80.0-100.0); Mean Platelet Volume 8.1 fL (7.0-11.0); Mono # (Auto) 0.8 th/mm3 (0.0-0.9); Mono % (Auto) 10.5 % (0.0-8.0); Neut # (Auto) 3.8 th/mm3 (1.8-7.7); Neut % (Auto) 48.2 % (16.0-70.0); Platelet Count 368 th/mm3 (150-450); Red Blood Count 5.09 mil/mm3 (4.00-5.30); Red Cell Distribution Width 15.4 % (11.6-17.2); White Blood Count 7.8 th/mm3 (4.0-11.0)
[2017-11-28 14:52] LABS: Alkaline Phosphatase 60 U/L (45-117); Total Protein 8.8 g/dL (6.4-8.2)
[2017-11-28] MEDS ORDERED: Morphine Inj 4 MG/ML Vial IV.PUSH ONE (14:52)
[2017-11-28 15:40] LABS: Alanine Aminotransferase 12 U/L (10-53); Albumin 3.4 g/dL (3.4-5.0); Anion Gap 9 meq/L (5-15); Aspartate Aminotransferase 10 U/L (15-37); Blood Urea Nitrogen 8 mg/dL (7-18); Calcium 9.3 mg/dL (8.5-10.1); Carbon Dioxide 26.4 meq/L (21.0-32.0); Chloride 102 meq/L (98-107); Glomerular Filtration Rate Greater Than 89 mL/min (>89); Glucose,Random 85 mg/dL (74-106); Lipase 205 U/L (73-393); Potassium 4.2 meq/L (3.5-5.1); Sodium 137 meq/L (136-145)
[2017-11-28 16:49] LABS: Bacteria,Urine Occasional /hpf; Bilirubin,Urine Negative (Negative); Clarity,Urine Hazy (Clear); Color,Urine Yellow (Yellw/Straw); Glucose,Urine (UA) Negative (Negative); Hyaline Casts,Urine 1 /lpf (0-3); Leukocyte Esterase,Urine Negative (Negative); Mucus,Urine Few /lpf (Occasional); Nitrite,Urine Negative (Negative); Specific Gravity,Urine 1.012 (1.002-1.035); Squamous Epithelial Cell,Urine 5 /hpf (0-5)
[2017-11-28] MEDS ORDERED: Sod Chloride 0.9% Inj 1,000 ML IV.CONT SCH (17:45)
[2017-11-28] MEDS ORDERED: Enoxaparin Inj 40 MG/0.4 ML Syringe SQ SCH (17:45)
[2017-11-28 18:15] LABS: Creatine Kinase 42 U/L (26-192)
--- NOTE | 2017-11-28 18:18 | ECG ---
Date Performed: 11/28/2017 Time Performed: 15:27:10 PTAGE: 67 years EKG: SINUS BRADYCARDIA POSSIBLE LEFT ATRIAL ENLARGEMENT LEFT VENTRICULAR HYPERTROPHY AND ST-T CH ANGES ABNORMAL ECG PREVIOUS TRACING : 12/28/2016 12.10 No significant change from previous tracing noted. DOCTOR: Devan Gil Interpretating Date/Time 11/28/2017 18:17:38
[2017-11-28] MEDS ORDERED: Morphine Inj 4 MG/ML Vial IV.PUSH PRN (18:25)
--- NOTE | 2017-11-28 18:33 | P.HP ---
History of Present Illness Service: Hospitalist Service Primary Care Physician: UNKNOWN Chief Complaint: Abdominal pain, nausea, vomiting History of Present Illness: This is a 67-year-old -Dominican female with past medical history significant for alcoholic pancreatitis, coronary artery disease status post MN with cardiac stent implant, COPD with ongoing tobaccoism, hypertension, chronic back pain, anxiety and depression who presents to [facility] ED with complaints of severe epigastric pain x 5 days. She endorses associated nausea and vomiting states she has not been able to eat anything since Thursday. She states that the pain radiates from the front to the back is the same as when she has had her previous pancreatitis attacks. She states she decided to come in today because the pain became too severe. She denies any blood in the vomitus. She denies any complaints of diarrhea and in fact states she has not had a bowel movement since Thursday. She denies any urinary difficulties. She was hospitalized last month at [facility] for acute respiratory failure secondary to pneumonia and required intubation. She endorses continued cough with greenish sputum production. She denies any fever chills. She denies any complaints of chest pain or shortness of breath. Patient states that she has not had alcoholic beverage in 9 years. She reports that certain foods set off her pancreatitis and that she believes she ate too much pizza prior to this attack. In the ED, patient's lipase level is normal but she has had acute pancreatitis attacks in the past with normal lipase levels. Imaging of the abdomen was not done. Bilirubin is elevated at 1.2. Troponin is less than 0.02. EKG shows inverted T waves which were present on previous tracing 2016. Her last pancreatitis flare was in 2016. Inpatient Certification: I certify that the inpatient services were ordered in accordance with Medicare regulations governing the order. This includes certification that hospital inpatient services are reasonable and necessary and in the case of services not specified as inpatient-only under 42 CFR 419.22(n), that they are appropriately provided as inpatient services in accordance to with the 2-midnight benchmark under 43 CFR 412.3(e) Review of Systems All other systems reviewed negative except as stated in HPI PMFSH - History History Provided By: Patient - Medical History Medical History: Medical History (Last Updated 11/28/17 @ 18:09 by Moni Maya) H/O: hysterectomy (Acute) Alcoholic pancreatitis COPD (chronic obstructive pulmonary disease) Chronic back pain Coronary artery disease Gastritis HTN (hypertension) Osteoarthritis - Family History Family History: Family History (Last Updated 11/28/17 @ 18:10 by Moni Maya) Mother CVA (cerebral vascular accident) - Tobacco History Second Hand Smoke Exposure: Yes Tobacco Use In Past 30 Days: Yes Smoking Status: Current every day smoker Tobacco Type: Cigarettes - Alcohol History How Often Do You Have a Drink Containing Alcohol: Never - Substance Use History Substance History: No History of Abuse - Travel History Recent Travel in the [place] Within the Last 8 Weeks: No Recent Travel Out of the Country Within the Last 8 Weeks: No - Immunization History Tetanus Immunization: Unsure Hx Influenza Vaccine This Season: Yes Medications and Allergies Active Medications: Active Medications Al Hydroxide/Mg Hydroxide (Milk Of Rina Grubbs) 30 ml PO Q12H PRN PRN Reason: Mild Constipation Enoxaparin Sodium (Lovenox Inj) 40 mg SQ Q24H FRED Sodium Chloride (Ns Inj) 1,000 mls @ 100 mls/hr IV.CONT .Q10H FRED Metoclopramide HCl (Reglan Inj) 5 mg IV.PUSH Q6HR PRN; Protocol PRN Reason: NAUSEA OR VOMITING Sodium Chloride (Ns Flush) 2 ml IV.FLUSH PRN PRN PRN Reason: FLUSH AFTER USING IV ACCESS Allergies Allergy/AdvReac Type Severity Reaction Status Date / Time No Known Allergies Allergy Unverified 11/28/17 12:58 Home Medications Medication Instructions Recorded Confirmed Type lisinopril-hydrochlorothiazide 1 tab PO DAILY 11/28/17 11/28/17 History Exam Vital signs: Vital Signs 11/28/17 12:58 11/28/17 15:21 11/28/17 16:06 Temperature 97.8 F Pulse Rate 87 82 Respiratory Rate 20 19 19 Blood Pressure 173/80 H 187/78 H Pulse Oximetry 98 97 Intake & Output 11/27/17 11/28/17 11/28/17 18:59 06:59 18:59 Weight 64 kg Other: # Voids 1 Narrative: GENERAL: This is a thin somewhat cachectic appearing -Dominican female, no acute distress. Awake and alert. SKIN: Warm and dry. HEAD: Atraumatic. Normocephalic. EYES: Pupils equal and round. No scleral icterus. No injection or drainage. ENT: No nasal bleeding or discharge. Mucous membranes pink and moist. NECK: Trachea midline. CARDIOVASCULAR: Regular rate and rhythm. RESPIRATORY: No accessory muscle use. Fair air entry. Scattered rhonchi. GASTROINTESTINAL: Abdomen soft, nondistended. + Epigastric tenderness to palpation. Hepatic and splenic margins not palpable. +BS. MUSCULOSKELETAL: Extremities without clubbing, cyanosis, or edema. No obvious deformities. NEUROLOGICAL: Awake and alert. No obvious cranial nerve deficits. Motor grossly within normal limits. Able to move all extremities spontaneously. Normal speech. PSYCHIATRIC: Appropriate mood and affect; insight and judgment normal. Results - Labs CBC & Chem 7: 11/28/17 14:21 11/28/17 15:06 Labs: Laboratory Results - last 24 hr 11/28/17 11/28/17 11/28/17 14:21 15:06 16:20 WBC 7.8 RBC 5.09 Hgb 14.5 Hct 42.9 MCV 84.3 MCH 28.5 MCHC 33.8 RDW 15.4 Plt Count 368 MPV 8.1 Neut % (Auto) 48.2 Lymph % (Auto) 39.0 [place] % (Auto) 10.5 H Eos % (Auto) 1.9 Baso % (Auto) 0.4 Neut # (Auto) 3.8 Lymph # (Auto) 3.0 [place] # (Auto) 0.8 Eos # (Auto) 0.1 Baso # (Auto) 0.0 WBC Differential . Differential Comment Auto diff final Sodium 137 Potassium 4.2 Chloride 102 Carbon Dioxide 26.4 Anion Gap 9 BUN 8 Creatinine 0.76 Estimated GFR Greater than 89 Random Glucose 85 Calcium 9.3 Total Bilirubin 1.2 H AST 10 L ALT 12 Alkaline Phosphatase 60 Total Protein 8.8 H Albumin 3.4 Lipase 205 Urine Color Yellow Urine Clarity Hazy H Urine pH 5.0 Ur Specific [place] 1.012 Urine Protein 100 H Urine Glucose (UA) Negative Urine Ketones 20 Urine Occult Blood Small H Urine Nitrate Negative Urine Bilirubin Negative Urine Urobilinogen Less than 2 Ur Leukocyte Esterase Negative Urine WBC 2 Ur Squamous Epith Cells 5 Urine Bacteria Occasional H Hyaline Casts 1 Urine Mucus Few H Micro UA Comment Culture not ind Urine Culture Comments Culture not ind Caprini VTE Risk Assessment Caprini VTE Risk Assessment: Moderate/High Risk (score >= 2) Caprini Risk Assessment Model: Point Value = 1 Point Value = 2 Point Value = 3 Point Value = 5 Age 41-60 Minor surgery BMI > 25 kg/m2 Swollen legs Varicose veins or History of unexplained or recurrent spontaneous Oral contraceptives or hormone replacement Sepsis (< 1 month) Serious lung disease, including pneumonia (< 1 month) Abnormal pulmonary function Acute myocardial infarction Congestive heart failure (< 1 month) History of inflammatory bowel disease Medical patient at bed rest Age 61-74 Arthroscopic surgery Major open surgery (> 45 min) Laparoscopic surgery (> 45 min) Malignancy Confined to bed (> 72 hours) Immobilizing plaster cast Central venous access Age >= 75 History of VTE Family history of VTE Factor V Leiden Prothrombin [id number] Lupus anticoagulant Anticardiolipin antibodies Elevated serum homocysteine Heparin-induced thrombocytopenia Other congenital or acquired thrombophilia Stroke (< 1 month) Elective arthroplasty Hip, pelvis, or leg fracture Acute spinal cord injury (< 1 month) Prophylaxis Regimen: Total Risk Factor Score Risk Level Prophylaxis Regimen 0-1 Low Early ambulation 2 Moderate Order ONE of the following: *Sequential Compression Device (SCD) *Heparin 5000 units SQ BID 3-4 Higher Order ONE of the following medications: *Heparin 5000 units SQ TID *Enoxaparin/Lovenox 40 mg SQ daily (WT < 150 kg, CrCl > 30 mL/min) *Enoxaparin/Lovenox 30 mg SQ daily (WT < 150 kg, CrCl > 10-29 mL/min) *Enoxaparin/Lovenox 30 mg SQ BID (WT < 150 kg, CrCl > 30 mL/min) AND/OR *Sequential Compression Device (SCD) 5 or more Highest Order ONE of the following medications: *Heparin 5000 units SQ TID (Preferred with Epidurals) *Enoxaparin/Lovenox 40 mg SQ daily (WT < 150 kg, CrCl > 30 mL/min) *Enoxaparin/Lovenox 30 mg SQ daily (WT < 150 kg, CrCl > 10-29 mL/min) *Enoxaparin/Lovenox 30 mg SQ BID (WT < 150 kg, CrCl > 30 mL/min) AND *Sequential Compression Device (SCD) Assessment and Plan - Plan 67-year-old -Dominican female with past medical history significant for alcoholic pancreatitis, coronary artery disease status post MN with cardiac stent implant, COPD with ongoing tobaccoism, hypertension, chronic back pain, anxiety and depression who presents to [facility] ED with complaints of severe epigastric pain radiating through to her back, nausea and vomiting 5 days. Acute pancreatitis with normal lipase level (patient has had previous bouts of acute pancreatitis with normal lipase levels) -Clear liquid diet -Pain management with IV Morphine and po [place] -IV antiemetics prn -Monitor for improvement -Consider abdominal imaging and/or GI consultation if symptoms worsen or fail to improve Recent hospitalization for acute respiratory failure with intubation secondary to pneumonia Patient is afebrile, does not appear septic -Obtain CXR -Supplemental oxygen as needed -Duonebs as needed Coronary artery disease status post MN/stent Initial troponin neg EKG with T-wave abnormalities, appear chronic, tracing reviewed by me Patient has no complaints of chest pain at this time -We will rule out ACS as cause of patient's epigastric pain with serial cardiac enzymes and EKG -Monitor on cardiac telemetry COPD, not in acute exacerbation Ongoing tobaccoism -Discussed smoking cessation -Monitor respiratory status Hypertension, not well controlled, suspect situational secondary to pain -Continue patient on home dose of antihypertensive -Clonidine as needed with parameters -Continue to monitor BP and adjust treatment accordingly Chronic medical conditions of arthritis, asthma, anxiety and depression, gastritis and chronic back pain. DVT prophylaxis -Lovenox sq Discussed Condition With: patient, Dr. Bill
[2017-11-28] MEDS: Sod Chloride 0.9% Inj 1,000 ML IV.CONT SCH (18:36)
--- NOTE | 2017-11-28 19:20 | XR ---
EXAM DATE: 11/28/2017 6:55 PM EDT AGE/SEX: 67 years / Female INDICATIONS: Cough CLINICAL DATA: This is the patient's initial encounter. Patient reports that signs and symptoms have been present for 1 day and indicates a pain score of 2/10. MEDICAL/SURGICAL HISTORY: None. None. COMPARISON: No prior exams available for comparison. FINDINGS: A single AP view of the chest demonstrates the lungs to be symmetrically aerated without evidence of mass, infiltrate or effusion. The cardiomediastinal contours are mildly prominent. Osseous structure s are intact. CONCLUSION: No acute findings. Mild cardiomegaly. Electronically signed by: Willie Holcomb MD 11/28/2017 7:19 PM EDT
--- NOTE | 2017-11-28 20:32 | CT ---
EXAM DATE: 11/28/2017 7:59 PM EDT AGE/SEX: 67 years / Female INDICATIONS: Epigastric pain X 4 days. CLINICAL DATA: This is the patient's initial encounter. Patient reports that signs and symptoms have been present for 4 - 6 days and indicates a pain score of 6/10. MEDICAL/SURGICAL HISTORY: Pancreatitis. Chronic obstructive pulmonary disease. Cerebrovascula r disease. Gastritis Hysterectomy. RADIATION DOSE: 6.64 CTDI (mGy) [place] [facility] [place] 12/28/[place]. . TECHNIQUE: Multiple contiguous axial images were obtained through the abdomen. Images were obtained using multiple row detector helical technique. Using automated exposure control and adjustment of the mA and/or kV according to patient size, radiation dose was kept as low as reasonably achievable to o btain optimal diagnostic quality images. DICOM format image data is available electronically for rev iew and comparison. FINDINGS: Lung bases demonstrate minimal dependent atelectasis. No acute findings in the liver, spleen, adrenals, or kidneys. Questionable mild stranding around the pancreas. No calcified gallstones or biliary ductal dilatation. Uterus is enlarged and heterogeneous likely from fibroid involvement. Appearance is similar to December 2016. No other pelvic masses or free fluid. Stomach is mildly distended. CONCLUSION: 1. Questionable mild pancreatitis. 2. Mild gastric distention. 3. Enlarged fibroid uterus similar to prior exam. Electronically signed by: Willie Holcomb MD 11/28/2017 8:31 PM EDT
[2017-11-28 22:49] LABS: Creatine Kinase 35 U/L (26-192)
--- NOTE | 2017-11-28 23:08 | ECG ---
Date Performed: 11/28/2017 Time Performed: 18:13:50 PTAGE: 67 years EKG: SINUS BRADYCARDIA POSSIBLE LEFT ATRIAL ENLARGEMENT POSSIBLE LEFT VENTRICULAR HYPERTROPHY AN D ST-T CHANGE ABNORMAL ECG PREVIOUS TRACING : 11/28/2017 15.27 No significant change from previous tracing noted. DOCTOR: Devan Gil Interpretating Date/Time 11/28/2017 23:07:57
[2017-11-29] MEDS: Sod Chloride 0.9% Inj 1,000 ML IV.CONT SCH (05:25)
[2017-11-29 05:57] LABS: White Blood Count 6.6 th/mm3 (4.0-11.0)
[2017-11-29 05:58] LABS: Baso % (Auto) 0.6 % (0.0-2.0); Eos # (Auto) 0.3 th/mm3 (0.0-0.4); Eos % (Auto) 4.3 % (0.0-4.0); Hematocrit 36.8 % (35.0-46.0); Hemoglobin 12.3 gm/dL (11.6-15.3); Lymph # (Auto) 3.4 th/mm3 (1.0-4.8); Lymph % (Auto) 51.6 % (9.0-44.0); Mean Corpuscular HGB Conc 33.4 % (32.0-36.0); Mean Corpuscular Hemoglobin 28.4 pg (27.0-34.0); Mean Platelet Volume 8.3 fL (7.0-11.0); Mono # (Auto) 0.7 th/mm3 (0.0-0.9); Mono % (Auto) 10.9 % (0.0-8.0); Neut # (Auto) 2.1 th/mm3 (1.8-7.7); Neut % (Auto) 32.6 % (16.0-70.0); Platelet Count 285 th/mm3 (150-450); Red Blood Count 4.33 mil/mm3 (4.00-5.30); Red Cell Distribution Width 15.5 % (11.6-17.2)
[2017-11-29 06:19] LABS: Alanine Aminotransferase 7 U/L (10-53); Albumin 2.8 g/dL (3.4-5.0); Alkaline Phosphatase 47 U/L (45-117); Anion Gap 9 meq/L (5-15); Aspartate Aminotransferase 11 U/L (15-37); Blood Urea Nitrogen 7 mg/dL (7-18); Chloride 107 meq/L (98-107); Glomerular Filtration Rate Greater Than 89 mL/min (>89); Glucose,Random 82 mg/dL (74-106); Potassium 3.8 meq/L (3.5-5.1); Sodium 139 meq/L (136-145); Total Protein 6.7 g/dL (6.4-8.2)
[2017-11-29 06:20] LABS: Creatine Kinase 33 U/L (26-192)
[2017-11-29] MEDS ORDERED: Non-Formulary Drug (Lisinopril-Hydrochlorothiazide [Lisinopril-Hydrochlorothiazide] 1 TAB) PO SCH (09:00)
[2017-11-29] MEDS ORDERED: Lisinopril 10 MG Tablet PO SCH (09:00)
--- NOTE | 2017-11-29 11:12 | ECG ---
Date Performed: 11/29/2017 Time Performed: 04:15:57 PTAGE: 67 years EKG: SINUS BRADYCARDIA POSSIBLE LEFT ATRIAL ENLARGEMENT LEFT VENTRICULAR HYPERTROPHY AND ST-T CH [place] ABNORMAL ECG PREVIOUS TRACING : 11/28/2017 18.13 No significant change from previous tracing noted. DOCTOR: Devan Gil Interpretating Date/Time 11/29/2017 11:11:10
--- NOTE | 2017-11-29 15:33 | P.PNIM ---
Subjective Interval history: Patient reports she is feeling much better today. Abdominal pain significantly improved. She is tolerating liquid diet. We discussed discharge planning at length and the need to follow-up outpatient with PCP. Physical Exam Vital signs: Vital Signs 11/28/17 16:06 11/28/17 18:00 11/28/17 18:32 Temperature Pulse Rate 82 56 L Respiratory Rate 19 16 Blood Pressure 187/78 H 203/84 H Pulse Oximetry 97 99 100 11/28/17 20:51 11/29/17 00:00 11/29/17 02:55 Temperature 98.1 F Pulse Rate 66 64 Respiratory Rate 18 16 20 Blood Pressure 145/66 H 138/68 Pulse Oximetry 97 11/29/17 04:00 11/29/17 07:14 11/29/17 07:19 Temperature 98 F 97.9 F Pulse Rate 68 54 L 52 L Respiratory Rate 16 16 Blood Pressure 148/70 H 193/74 H Pulse Oximetry 98 100 11/29/17 12:00 11/29/17 12:17 11/29/17 15:30 Temperature 98.0 F 97.8 F Pulse Rate 53 L 56 L 120 H Respiratory Rate 18 18 Blood Pressure 160/76 H 191/98 H Pulse Oximetry 98 100 Intake & Output 11/28/17 11/29/17 11/29/17 18:59 06:59 18:59 Intake Total 1000 / 1000 1000 / 1000 Balance 1000 / 1000 1000 / 1000 Weight 64 kg Intake: IV 1000 / 1000 1000 / 1000 NS Inj 1,000 ML @ 100 mls/hr IV 1000 / 1000 .CONT .Q10H FRED Rx#:[id number] Other: # Voids 1 Date of Last Bowel Movement 11/23/17 Narrative: GENERAL: This is a well-nourished, well-developed patient, in no apparent distress. CARDIOVASCULAR: Normal rate and regular rhythm without murmurs, gallops, or rubs. RESPIRATORY: Good respiratory efforts. Breath sounds equal and clear to auscultation bilaterally. GASTROINTESTINAL: Abdomen soft, non-distended, tender to palpation in the midepigastric region. Normal active bowel sounds MUSCULOSKELETAL: Extremities without cyanosis, or edema. NEURO: Alert & Oriented x4 to person, place, time, situation. Moves all ext x4 PSYCH: Appropriate mood and affect. Results - Labs CBC & Chem 7: 11/29/17 04:10 11/29/17 04:10 Laboratory Results - last 24 hr 11/28/17 11/28/17 11/28/17 15:06 15:06 16:20 WBC RBC Hgb Hct MCV MCH MCHC RDW Plt Count MPV Neut % (Auto) Lymph % (Auto) [place] % (Auto) Eos % (Auto) Baso % (Auto) Neut # (Auto) Lymph # (Auto) [place] # (Auto) Eos # (Auto) Baso # (Auto) WBC Differential Differential Comment Sodium 137 Potassium 4.2 Chloride 102 Carbon Dioxide 26.4 Anion Gap 9 BUN 8 Creatinine 0.76 Estimated GFR Greater than 89 POC Glucose Random Glucose 85 Calcium 9.3 Total Bilirubin AST 10 L ALT 12 Alkaline Phosphatase Total Creatine Kinase 42 Troponin I Less than 0.02 L Total Protein Albumin 3.4 Lipase 205 Urine Color Yellow Urine Clarity Hazy H Urine pH 5.0 Ur Specific [place] 1.012 Urine Protein 100 H Urine Glucose (UA) Negative Urine Ketones 20 Urine Occult Blood Small H Urine Nitrate Negative Urine Bilirubin Negative Urine Urobilinogen Less than 2 Ur Leukocyte Esterase Negative Urine WBC 2 Ur Squamous Epith Cells 5 Urine Bacteria Occasional H Hyaline Casts 1 Urine Mucus Few H Micro UA Comment Culture not ind Urine Culture Comments Culture not ind 11/28/17 11/29/17 11/29/17 22:05 04:10 04:10 WBC 6.6 RBC 4.33 Hgb 12.3 D Hct 36.8 MCV 85.0 MCH 28.4 MCHC 33.4 RDW 15.5 Plt Count 285 MPV 8.3 Neut % (Auto) 32.6 Lymph % (Auto) 51.6 H [place] % (Auto) 10.9 H Eos % (Auto) 4.3 H Baso % (Auto) 0.6 Neut # (Auto) 2.1 Lymph # (Auto) 3.4 [place] # (Auto) 0.7 Eos # (Auto) 0.3 Baso # (Auto) 0.0 WBC Differential . Differential Comment Auto diff final Sodium 139 Potassium 3.8 Chloride 107 Carbon Dioxide 23.0 Anion Gap 9 BUN 7 Creatinine 0.54 Estimated GFR Greater than 89 POC Glucose Random Glucose 82 Calcium 8.0 L D Total Bilirubin 0.7 AST 11 L ALT 7 L Alkaline Phosphatase 47 Total Creatine Kinase 35 33 Troponin I Less than 0.02 L Less than 0.02 L Total Protein 6.7 D Albumin 2.8 L D Lipase Urine Color Urine Clarity Urine pH Ur Specific [place] Urine Protein Urine Glucose (UA) Urine Ketones Urine Occult Blood Urine Nitrate Urine Bilirubin Urine Urobilinogen Ur Leukocyte Esterase Urine WBC Ur Squamous Epith Cells Urine Bacteria Hyaline Casts Urine Mucus Micro UA Comment Urine Culture Comments 11/29/17 13:16 WBC RBC Hgb Hct MCV MCH MCHC RDW Plt Count MPV Neut % (Auto) Lymph % (Auto) [place] % (Auto) Eos % (Auto) Baso % (Auto) Neut # (Auto) Lymph # (Auto) [place] # (Auto) Eos # (Auto) Baso # (Auto) WBC Differential Differential Comment Sodium Potassium Chloride Carbon Dioxide Anion Gap BUN Creatinine Estimated GFR POC Glucose 106 Random Glucose Calcium Total Bilirubin AST ALT Alkaline Phosphatase Total Creatine Kinase Troponin I Total Protein Albumin Lipase Urine Color Urine Clarity Urine pH Ur Specific [place] Urine Protein Urine Glucose (UA) Urine Ketones Urine Occult Blood Urine Nitrate Urine Bilirubin Urine Urobilinogen Ur Leukocyte Esterase Urine WBC Ur Squamous Epith Cells Urine Bacteria Hyaline Casts Urine Mucus Micro UA Comment Urine Culture Comments - Imaging Impressions Chest X-Ray 11/28/17 00:00 CONCLUSION: No acute findings. Mild cardiomegaly. Abdomen/Pelvis CT 11/28/17 18:39 CONCLUSION: 1. Questionable mild pancreatitis. 2. Mild gastric distention. 3. Enlarged fibroid uterus similar to prior exam. Assessment and Plan - Plan 67-year-old female with a medical history significant for alcoholic pancreatitis , history of MT status post stent placement who presented with complaint of midepigastric pain radiating to the back. CT of the abdomen shows possible mild pancreatitis. She has had prior issues with that before. Patient was admitted and treated with supportive care. Her cardiac enzymes were negative. Her symptoms quickly improved. It appears that gastritis may be contributing more to her abdominal symptoms rather than true pancreatitis given the normal lipase. Patient was started on Protonix. She was given a limited supply of pain medication. His symptoms improve quickly, therefore she was discharged home to follow-up outpatient with PCP. Hypertension, not well controlled due to noncompliance with medications and current pain issues. Patient reports she has not followed with PCP recently. She was given medications for -Antihypertensive adjusted. New regimen include lisinopril 20 mg daily and amlodipine 5 mg daily. -Follow-up outpatient with PCP in the next couple of days to adjust antihypertensive as needed. Chronic medical conditions of arthritis, asthma, anxiety and depression, gastritis and chronic back pain.
== END 2017-11-29 17:30 | disposition home or self-care (01) ==
LOC: NEDA 12:52 → NEPC 12:52 → NEPHCDU 12:52 → NEDA 21:59 → NEPHCDU 22:10
PROVIDERS: ADMIT Family Medicine; ATTEND Family Medicine